=== PATIENT | female | born 1985 | race Caucasian/White ===

== ENCOUNTER 2019-07-13 12:47 | Outpatient (CLI) | payer OTHER ==
--- NOTE | 2019-07-13 16:11 | MMO ---
Bilateral MAMMO Bilat Diag [facility]. CLINICAL HISTORY: Patient is 33 years old and is seen for diagnostic exam,palpable abnormality in the left breast and skin thickening or retraction on clinical examination in the right breast. The patient has the following family history of breast cancer: cousin female; paternal aunt and maternal aunt. The patient has no personal history of cancer. VIEWS: The views performed were: bilateral craniocaudal with tomosynthesis; bilateral mediolateral with tomosynthesis; bilateral mediolateral oblique with tomosynthesis; left mediolateral oblique spot compression with tomosynthesis; and left craniocaudal spot compression with tomosynthesis. FILMS COMPARED: The present examination has been compared to a prior imaging study performed at [facility] on 07/13/2019. MAMMOGRAM FINDINGS: The breasts are heterogeneously dense, which could obscure a lesion on mammography. There are no suspicious masses, suspicious calcifications, or new areas of architectural distortion. IMPRESSION: THERE IS NO MAMMOGRAPHIC EVIDENCE OF MALIGNANCY. A ROUTINE FOLLOW-UP MAMMOGRAM AT AGE 41 IS RECOMMENDED. THE RESULTS OF THIS EXAM WERE SENT TO THE PATIENT. ACR BI-RADS Category 1 - Negative MAMMOGRAPHY NOTE: 1. A negative mammogram report should not delay a biopsy if a dominant of clinically suspicious mass is present. 2. Approximately 10% to 15% of breast cancers are not detected by mammography. 3. Adenosis and dense breasts may obscure an underlying neoplasm. Reported by: TORIN HANLEY MD Electonically Signed: [id number]
--- NOTE | 2019-07-13 17:35 | ULT ---
RIGHT BREAST ULTRASOUND: 07/13/19 HISTORY: Palpable finding in the periareolar region of the right breast on clinical exam by referring physicia n. No palpable finding at the time of the ultrasound. Real time imaging of the area of concern was performed after consultation with the doctor's office. T his shows normal appearing breast parenchyma. No masses. IMPRESSION: BIRADS 2: Benign Finding(s) Routine annual screening mammography (for women over age 40). POS: OFF
--- NOTE | 2019-07-13 17:36 | ULT ---
LEFT BREAST ULTRASOUND: 07/13/19 HISTORY: Patient has felt a persistent palpable abnormality at the 1 to 2 o'clock position of the left breast. COMPARISON: Mammogram study done today which showed no abnormality. Real time imaging of the area of concern shows no evidence of any cystic or solid lesion. IMPRESSION: BIRADS 2: Benign Finding(s) Routine annual screening mammography (for women over age 40). POS: OFF
== END 2019-07-13 12:48 | disposition home or self-care (01) ==
LOC: BICMAMMO 12:47
PROVIDERS: ATTEND Nurse Practitioner Women's Health
DX: N63.10 Unspecified lump in the right breast, unspecified quadrant (principal); N63.20 Unspecified lump in the left breast, unspecified quadrant
CPT/HCPCS: 77066; G0279

== ENCOUNTER 2019-11-29 11:56 | Emergency (ER) | payer BC ==
[2019-11-29 13:09] LABS: #Basophils 0.1 thou/uL (0.0-0.2); #Eosinphils 0.1 thou/uL (0.0-0.7); #Lymphocytes 2.3 thou/uL (1.20-3.40); #Monocytes 0.7 thou/uL (0.11-0.59); #Neutrophils 5.5 thou/uL (1.40-6.50); %Basophils 0.7 % (0.0-1.0); %Eosinophils 1.4 % (0.0-10.0); %Lymphocytes 26.8 % (21.0-51.0); %Monocytes 7.5 % (0.0-10.0); %Neutrophils 63.6 % (42.0-75.0); Hemoglobin 12.6 g/dL (12.0-16.0); Mean Corpuscular HGB CONC 31.9 g/dL (32.0-36.0); Mean Corpuscular Volume 84.7 fL (78.0-98.0); Mean Platelet Volume 6.5 fL (7.4-10.4); Platelet Count 376 thou/uL (130-400); RBC Distribution Width 13.5 % (11.5-14.5); Red Blood Cell (RBC) Count 4.65 mill/uL (4.20-5.40); White Blood Cell (WBC) Count 8.7 thou/uL (4.8-10.8)
--- NOTE | 2019-11-29 13:14 | RAD ---
EXAM: CHEST ONE VIEW HISTORY: Chest pain and fluctuating blood pressure. COMPARISON: None FINDINGS: The cardiac silhouette and pulmonary vasculature is within normal limits. The lungs are clear. The os seous structures are intact. IMPRESSION: No acute cardiopulmonary process.
[2019-11-29 13:27] LABS: ALT (SGPT) 10 U/L (8-55); AST (SGOT) 11 U/L (5-34); Albumin 4.5 g/dL (3.5-5.0); Alkaline Phosphatase 60 U/L (40-110); Anion Gap 11 mmol/L (10-20); BUN (Urea Nitrogen) 10 mg/dL (7.0-18.7); Bilirubin, Total 0.3 mg/dL (0.2-1.2); Calc. Creatinine Clearance 0 mL/min (70-130); Calcium 9.4 mg/dL (7.8-10.44); Carbon Dioxide 26 mmol/L (22-29); Chloride 105 mmol/L (98-107); Estimated GFR-MDRD 83; Globulin 3.3 g/dL (2.4-3.5); Glucose 98 mg/dL (70-105); Potassium 3.9 mmol/L (3.5-5.1); Protein, Total 7.8 g/dL (6.0-8.3); Sodium 138 mmol/L (136-145)
--- NOTE | 2019-11-29 13:57 | CT ---
CT Brain WO Con: 11/29/2019 1:37 PM CLINICAL HISTORY: Dizziness and slowness after working out this morning; hypotension. IMAGING TECHNIQUE: Multiple CT images were obtained of the brain without IV contrast. COMPARISON: None. FINDINGS: Brain: No acute infarct or hemorrhage is evident. No midline shift. Ventricles: Normal. No hydrocephalus. Skull: Intact. Visualized Paranasal sinuses: Clear. Mastoid air cells:Clear. Extracranial soft tissues:Normal. IMPRESSION: No acute intracranial abnormality.
[2019-11-29 14:27] LABS: BHCG - Serum Negative (NEGATIVE); Pregs Control Background? CLEAR/WHITE (CLR/WHITE); Pregs Control Bar Appear? YES (CONTROL BAR)
[2019-11-29 14:32] LABS: Bacteria/HPF 3+ HPF (None Seen); Bilirubin Negative (Negative); Blood, Urine Negative (Negative); Clarity Clear (Clear); Glucose, Urine (Dipstick) Normal (Negative); Leukocyte 250 Leu/uL (Negative); Nitrite Negative (Negative); Protein, Urine (Dipstick) Negative (Neg-Trace); RBC/HPF 0-3 HPF (0-3); Urobilinogen Normal mg/dL (Less than 2); WBC/HPF 0-3 HPF (0-3)
[2019-11-29] MEDS ORDERED: Lorazepam 1 MG TAB ONE (15:35)
[2019-11-29 15:40] LABS: Free T4 (Free Thyroxine) 1.35 ng/dL (0.70-1.48); Thyroid Stimulating Hormone 1.6522 uIU/mL (0.35-4.94)
[2019-11-29] MEDS ORDERED: Meclizine HCl 25 MG TAB ONE (17:30)
== END 2019-11-29 17:55 | disposition home or self-care (01) ==
LOC: ERS 11:56
DX: R00.2 Palpitations (principal); E78.00 Pure hypercholesterolemia, unspecified; F32.9 Major depressive disorder, single episode, unspecified
CPT/HCPCS: 36415; 70450; 71045; 80053; 81003; 81015; 84439; 84443; 84484; 84703; 85025; 85379; 87804; 93005; 96360; 96361; J8597

== ENCOUNTER 2019-11-30 18:17 | Observation (INO) | payer BC ==
[~2019-11-30 18:17] MED LIST: Iopamidol-370 76% 500 ML 1 ML ONE
[2019-11-30] MEDS ORDERED: Nitroglycerin 0.4 MG TAB 1 EACH ONE (18:38)
[2019-11-30] MEDS ORDERED: Aspirin Chewable 81 MG TAB ONE (18:51)
[2019-11-30 19:11] LABS: #Basophils 0.1 thou/uL (0.0-0.2); #Eosinphils 0.2 thou/uL (0.0-0.7); #Lymphocytes 3.1 thou/uL (1.20-3.40); #Monocytes 0.8 thou/uL (0.11-0.59); %Basophils 0.9 % (0.0-1.0); %Eosinophils 1.7 % (0.0-10.0); %Lymphocytes 30.6 % (21.0-51.0); %Monocytes 7.4 % (0.0-10.0); %Neutrophils 59.4 % (42.0-75.0); Hemoglobin 12.3 g/dL (12.0-16.0); Mean Corpuscular HGB CONC 31.7 g/dL (32.0-36.0); Mean Corpuscular Volume 85.2 fL (78.0-98.0); Mean Platelet Volume 6.3 fL (7.4-10.4); Platelet Count 357 thou/uL (130-400); RBC Distribution Width 13.3 % (11.5-14.5); Red Blood Cell (RBC) Count 4.56 mill/uL (4.20-5.40); White Blood Cell (WBC) Count 10.2 thou/uL (4.8-10.8)
--- NOTE | 2019-11-30 19:13 | RAD ---
Exam: Chest one view HISTORY:Chest pain Comparison: 11/29/2019 FINDINGS: Cardiac silhouette: Normal Aorta: Unremarkable Pulmonary vessels: Normal Costophrenic angles: Clear LUNGS: No masses or consolidation. Pneumothorax: None Osseous abnormalities: None IMPRESSION: No acute cardiopulmonary process.
[2019-11-30 19:34] LABS: ALT (SGPT) 9 U/L (8-55); AST (SGOT) 13 U/L (5-34); Albumin 4.5 g/dL (3.5-5.0); Alkaline Phosphatase 64 U/L (40-110); Anion Gap 15 mmol/L (10-20); BUN (Urea Nitrogen) 9 mg/dL (7.0-18.7); Bilirubin, Total 0.4 mg/dL (0.2-1.2); Calc. Creatinine Clearance 0 mL/min (70-130); Calcium 9.2 mg/dL (7.8-10.44); Carbon Dioxide 24 mmol/L (22-29); Chloride 105 mmol/L (98-107); Estimated GFR-MDRD 80; Glucose 92 mg/dL (70-105); Lipase 11 U/L (8-78); Potassium 3.9 mmol/L (3.5-5.1); Protein, Total 7.5 g/dL (6.0-8.3); Sodium 140 mmol/L (136-145)
--- NOTE | 2019-11-30 21:14 | CT ---
Exam: CT angiogram of the chest HISTORY: Chest pain. Syncope. COMPARISON: None TECHNIQUE: CT angiogram of the chest is performed in the axial plane. Three-dimensional reformatted i mages are submitted for interpretation FINDINGS: Mediastinum: No mass, lymphadenopathy or hematoma. HEART: Normal size. No significant pericardial fluid. Aorta: No aneurysm or dissection Upper solid abdominal viscera: No abnormality enhancement. Trachea and central bronchi: Patent Pleural spaces: No effusion Lung parenchyma: No masses or consolidation. Minimal scarring and atelectasis in the lung bases. Pneumothorax: None Osseous structures: No lytic or blastic lesions Pulmonary arteries: Adequate contrast opacification pulmonary arterial system to the level of segment al arteries. No filling defect to suggest pulmonary embolism Incidentals: Previous bariatric surgical change. IMPRESSION:No evidence of pulmonary artery embolism to the level of the segmental arteries.
--- NOTE | 2019-11-30 21:50 | ULT ---
EXAM: Bilateral lower extremity venous ultrasound HISTORY: Pain. Edema. COMPARISON: None TECHNIQUE: Multiplanar grayscale and color Doppler images were obtained in a bilateral lower extremit y venous ultrasound. Spectral analysis of the Doppler waveforms were performed. FINDINGS: The bilateral common femoral vein, profunda femoral veins, superficial femoral veins, and p opliteal veins are normal in appearance without visible thrombus. These vessels demonstrate normal compression, flow, and augmentation. The bilateral posterior tibial veins, profunda femoral veins and greater saphenous veins are patent w ithout evidence of DVT. IMPRESSION: No evidence of DVT in the left or right lower extremity.
[2019-11-30 23:25] LABS: Troponin I Less than 0.010 ng/mL (< 0.028)
[2019-11-30] MEDS ORDERED: Ketorolac Tromethamine 30 MG/ML VIAL ONE (23:40)
[2019-11-30] MEDS ORDERED: Acetaminophen 500 MG TAB ONE (23:40)
[2019-12-01 00:44] VITALS: BMI 44.6
[2019-12-01] MEDS ORDERED: Ondansetron PF 4 MG/2 ML Vial IVP PRN (03:19)
[2019-12-01 04:24] LABS: Troponin I Less than 0.010 ng/mL (< 0.028)
[2019-12-01 04:38] LABS: Free T4 (Free Thyroxine) 1.1 ng/dL (0.70-1.48); Thyroid Stimulating Hormone 3.579 uIU/mL (0.35-4.94)
--- NOTE | 2019-12-01 04:39 | HP ---
PRIMARY CARE PHYSICIAN: None. CHIEF COMPLAINT: Recurrent episodes of weakness, fatigue, and near syncope. Referral to ED from tool and die designer, Dr. Ring's office. HISTORY OF PRESENT ILLNESS: A 34-year-old obese female with past medical history of hypothyroidism, on levothyroxine, stroke with diplopia and prior episodes of weakness, fatigue, nausea, and near-syncope, most recently January 2019, who wore a 3-week Holter monitor at that time, which was unremarkable and was being followed by tool and die designer in [place], [place], who went to tool and die designer's office today for 5 to 6 episodes of recurrent complaints in the past week and was noted to have abnormal EKG changes while there with recurrence of symptoms and referred to ER. The patient reports that she has had prior similar symptoms in November 2017 and January 2019. She reports on Friday, approximately 2 hours after a gym workout, she experienced nausea, lightheadedness, extreme fatigue, and near syncopal event with her legs feeling weak and experienced a rubber band like sensation overlying the left upper arm with tingling in the left upper extremities associated with nausea and diaphoresis that lasted all the night. Denies any complaints of palpitations or syncope at that time. She does admit to drinking 1 to 2 cups of coffee earlier that day. She notes recurrence of symptoms on and felt okay on Friday. Friday, she felt fatigued all day and on Friday, she reports similar symptoms and falls until sleep on the couch, which was unusual for her as she takes care of young children. On Friday after a workout in the morning, she went to the [employer] and again experienced similar complaints lasting minutes in duration and sat down on a dressing room and symptoms only mildly improved and she presented to the emergency department for further evaluation. She was worked up with unremarkable workup and discharged home from the ER, but notes that she did not feel any better and that her symptoms had persisted all day Friday and even upon waking up on Friday morning, she continued to feel bad. She found an appointment with tool and die designer, Dr. Ring and underwent echocardiogram in his office. While speaking with him, she noted recurrence of left shoulder discomfort and a 12-lead EKG revealed T-wave inversions in the inferior leads and left anterior hemiblock, which improved as her pain resolved. She was wheeled to the ER personally by tool and die designer. Repeat 12-lead EKG and cardiac biomarker in ER have been unremarkable. The patient was admitted for further observation. At bedside, the patient complains of ongoing severe fatigue and some pressure-like discomfort in her chest, but feels much better than earlier today. She is concerned due to increased frequency of her symptoms. She reports a history of prior miscarriage and tubal ligation. She reports that her first daughter was born at term, but with intrauterine growth restriction and only weighed 2 pounds and 3 ounces, and her placenta was calcified with concerns for possible clots. She denies ever having any hypercoagulable workup. She denies any family history of premature CAD or sudden cardiac . She denies any illicit drug use and reports taking pre-workout protein shake. The patient reports noticing fluctuation in her blood pressure at home ranging from 90s to 140s. The patient also reports hemorrhoids that have been frequently bleeding. PAST MEDICAL HISTORY: Morbid obesity, hypothyroidism, stroke, recurrent episodes of near-syncope with last January 2019 Holter monitor unremarkable. PAST SURGICAL HISTORY: Hysterectomy, gastric sleeve, cholecystectomy, tubal ligation. SOCIAL HISTORY: The patient is , lives with her spouse and two daughters. She denies tobacco use or illicit drug use. ALLERGIES: DOCUMENTED TO LEVAQUIN AND MORPHINE. REVIEW OF SYSTEMS: Pertinent positives as per HPI. Remainder of review of systems negative. MEDICATIONS: Reviewed as per admission medication reconciliation including levothyroxine 125 mcg daily. FAMILY HISTORY: The patient denies any family history of premature CAD or sudden cardiac . Her father had hypertension. Mother had congestive heart failure. PHYSICAL EXAMINATION: VITAL SIGNS: Temperature 98.1, pulse 79, sinus rhythm, blood pressure 100/59, oxygen saturation 100% on room air, respirations 18. GENERAL APPEARANCE: This is a young obese female, who is awake, alert, oriented, coherent, lucid, not in any obvious distress, speaking in full complete sentences. HEENT: Normocephalic, atraumatic. No facial asymmetry. Pupils equally round. Extraocular muscles intact. Moist mucous membranes. NECK: Supple but nontender. CARDIOVASCULAR: S1, S2. Regular rate and rhythm. No harsh murmurs. No chest wall tenderness to palpation. LUNGS: Bilateral equal air entry on anterior auscultation. Symmetrical chest expansion. No wheezing or rales. ABDOMEN: Soft, nontender, nondistended. EXTREMITIES: No edema, cyanosis, or deformities of bilateral upper and lower extremities. SKIN: Warm to touch without rash or pallor or abrasion. LABORATORY DATA: CBC reviewed and unremarkable. CMP reviewed and unremarkable. Troponin negative x2. IMAGING: CTA chest and thorax on 11/30/2019, reveals no evidence of PE. 12-lead EKGs serially reviewed. Office EKG suggests T-wave inversions in leads II, III, and AVF with left anterior hemiblock. Echocardiogram from tool and die designer's office, unclear results. ASSESSMENT: 1. Recurrent complaints of near syncope of unspecified etiology. Evaluate for cardiogenic etiologies. The patient will be admitted to telemetry observation status. [facility] will be consulted to help assist in recurrent debilitating patient's symptoms. We will obtain cardiac biomarkers to exclude acute coronary syndrome. We will need to obtain tool and die designer echocardiogram results. We will maintain n.p.o. in the event further Cardiology workup is needed. Check thyroid function test noting history of hypothyroidism. The patient endorses multitude of medical problems, unclear if there is any unifying link. She has previously worn a Holter monitor in January 2019 by tool and die designer in [place], [place] and reports test was unremarkable, but she limited her activity at that time. 2. Jahaira hypothyroidism. Continue Synthroid 125 mcg p.o. daily. Check thyroid function test. 3. History of stroke in 2014 with resultant diplopia. 4. History of multiple miscarriages. 5. History of prior term delivery with daughter having intrauterine growth restriction and noted calcified placenta with possible clots. The patient denies ever having hypercoagulable workup done. 6. Morbid obesity, BMI 44. 7. Deep vein thrombosis prophylaxis, bilateral lower extremity sequential compression devices. 8. Disposition: Telemetry observation admission. We will await further Cardiology input. The patient was seen and examined on 12/01/2019. Job ID: [id number]
[2019-12-01] MEDS: Acetaminophen 500 MG TAB PO PRN (06:40)
[2019-12-01 07:54] LABS: Cardiac Risk 3.2 (Less than 4.5)
[2019-12-01] MEDS ORDERED: Diazepam 5 MG TAB PO SCH (09:00)
[2019-12-01] MEDS ORDERED: Communication Order-Pharmacy FS SCH (09:00)
[2019-12-01] MEDS: Sodium Chloride 0.9% 1,000 ML IV SCH ×2 (09:21→15:59)
[2019-12-01] MEDS ORDERED: Aspirin 81 mg Enteric Coated Tablet PO SCH (09:30)
--- NOTE | 2019-12-01 10:12 | CON ---
DATE OF CONSULTATION: 12/01/2019 REASON FOR CONSULTATION: Left arm pain, chest pressure, abnormal EKG. HISTORY OF PRESENT ILLNESS: Ms. Reyna is a pleasant 34-year-old woman. The patient has a history of recent left arm pain and chest pain. The pain was like a numb feeling going into her hand, but she also feels like a rubber band on her upper arm. Then, she also has pain associated with that. It goes through to her back between her shoulder blades and anteriorly and to the portion of her chest, that has made her difficult to breathe. She has had multiple episodes of that recently. She went to see Dr. Ring in his office yesterday. Echocardiogram showed normal left ventricular function, but she had recurrent pain in the office. There was one EKG during pain, in which she had T-wave inversions in the inferior leads. She got nitroglycerin, and then the EKG was back to normal. The patient does not use tobacco or smoke. No diabetes. She said she had a blood test done recently, which showed she was "high risk for heart attack". I do not know the results of that. It sounds like maybe her cholesterol was high at that time, but the more recent cholesterol done on this admission is not elevated. No history of diabetes. The patient states she has had 5 or 6 episodes of these sensations in the last week or 2. PAST MEDICAL HISTORY: 1. She has a history of morbid obesity. 2. She has a history of orthostatic hypotension. PAST SURGICAL HISTORY: 1. Previous gastric sleeve. 2. Cholecystectomy. 3. Tubal ligation. 4. Hysterectomy. SOCIAL HISTORY: No alcohol or tobacco. ALLERGIES: 1. LEVAQUIN. 2. MORPHINE. REVIEW OF SYSTEMS: Positive as outlined above. Otherwise, negative. MEDICATIONS: Medication prior to admission: Levothyroxine. FAMILY HISTORY: She said her father had a heart attack in his early 30s. Father had hypertension. PHYSICAL EXAMINATION: GENERAL: This is a pleasant young woman, in no distress. VITAL SIGNS: Blood pressure 99/55, pulse 60. HEENT: Eyes, sclerae are nonicteric. Mouth, mucous membranes are moist. NECK: Supple. No lymphadenopathy. LUNGS: Clear. CARDIAC: Normal S1. Normal S2. There is no murmur, rub, or gallop. ABDOMEN: Obese and nontender. EXTREMITIES: No clubbing or cyanosis. No edema. Pedal pulses are present, but difficult to feel femoral pulses palpable. LABORATORY DATA: Cardiac enzymes are all within normal range. The first was 0.15. The rest draw less than 0.010. Cholesterol level is 159. Blood sugar is 92. EKG: Most of the EKGs are within normal limits. There was one EKG with pain. There is a left anterior fascicular block, and also, it looks like ectopic atrial rhythm with T-wave inversions in the inferior leads. It is possible that there were lead placement issues during that EKG as the other EKGs do not have those findings. ASSESSMENT: 1. Recurrent left arm pain and chest pressure on multiple occasions of uncertain etiology. 2. Morbid obesity with previous gastric sleeve. 3. She tells me her father had a heart attack in his 30s. Otherwise, no real risk factors. At this time, it is unclear what the etiology of her symptoms is. The most definitive test would be heart catheterization, but I did explain to her there is some risk including injury to vascular structures including the femoral artery, increased risk of pseudoaneurysm formation in a patient with morbid obesity, risk of bleeding or infection, and the risk of stroke, heart attack, iodine allergy, loss of blood supply to leg or kidney, stent thrombosis and stent restenosis in the event of stent implantation. The patient understands and wishes to proceed. She wishes for the most definitive test. In view of the recurrent episodes on multiple occasions and unknown etiology, it seems reasonable to do a heart catheterization. As mentioned, I have extensively discussed risk with her. She wishes to know for sure if she has underlying coronary artery disease or not. ADDENDUM: Reviewing the EKGs again as I met her previously look like this was likely a lead placement issue with abnormal EKG. Reviewing again, it seems clearly that one EKG, which is abnormal looks definitely that leads were misplaced. The patient has had normal cardiac enzymes. No significant EKG changes with low risk factor profile for coronary artery disease. We will proceed with stress testing prior to any potential cardiac catheterization. That is also the patient's preference after discussing with her. Job ID: [id number]
--- NOTE | 2019-12-01 12:16 | MRI ---
MRI CERVICAL SPINE WITHOUT CONTRAST: Date: 12/01/2019 INDICATION: Neck pain. Left arm pain. FINDINGS: Cervical vertebra maintain normal height and alignment. Disc spaces are normally maintained. Cervical vertebra maintain normal signal. No evidence of significant disc bulge or disc protrusion in any of the cervical levels. There is no e vidence of central canal or foraminal stenosis. The cervical cord signal is normal. IMPRESSION: Unremarkable MRI cervical spine. POS: SABINO
[2019-12-01] MEDS ORDERED: Sodium Chloride 0.9% 500 ML IV SCH (16:15)
[2019-12-02] MEDS: Acetaminophen 500 MG TAB PO PRN (08:45)
--- NOTE | 2019-12-02 09:33 | NM ---
Radionucleotide stress and rest myocardial perfusion scan with CT attenuation correction and SPECT im aging Left ventricular wall motion evaluation and ejection fraction HISTORY: Chest pain. FINDINGS: Carmelo protocol. Total test time 7:01. There is heterogeneous uptake of radiotracer throughout the left ventricular myocardium. On the stres s images that are presented, there is apparent decrease in radiotracer activity at the anterolateral wall. Images and data were manipulated and reviewed at the workstation. Polar maps were also evaluated for quantitative analysis. No significant reversibility is reliably demonstrated. QGS analysis of gated SPECT images shows no focal wall motion abnormalities. TID equal 0.87. LHR 47%. IMPRESSION: Probably normal myocardial perfusion scan. No reliable evidence of ischemia. Normal LVEF.
[2019-12-02 11:34] VITALS: BP 107/61; TEMP 98.4
--- NOTE | 2019-12-02 14:25 | PRG ---
DATE OF SERVICE: 12/02/2019 SUBJECTIVE: Ms. Reyna is doing better. She is not having any chest pressure other than, she really thinks about it, she says some mild uncomfortable feeling in her upper chest, and when she walks around, that feels better. OBJECTIVE: VITAL SIGNS: Her blood pressure is 108/59 and pulse 74. LUNGS: Clear. CARDIAC: Normal S1, normal S2. ABDOMEN: Soft and nontender. EXTREMITIES: She has no edema. PERTINENT LABORATORY DATA: The troponin I's were all in the normal range, the first was 0.015, normal being less than 0.028, the others were less than 0.010. The EKGs were all normal. There was one EKG in the chart where it looks like there was a lead reversal, but all the EKGs are normal. There was just one looks like there is some lead reversal. Her LDL cholesterol is 98. Her blood sugar is 92. HDL cholesterol is 50. On the stress test, she was into stage III of the Carmelo protocol. She had no chest pain. No EKG changes. The nuclear medicine images were interpreted as probably normal, suspect there is likely some breast attenuation artifact. The patient did have a chest CT and also evaluation of the thoracic aorta, which is normal. There is no evidence of pulmonary emboli. ASSESSMENT: 1. Chest pain, atypical for angina. 2. Very low risk factor profile for coronary artery disease. Her cholesterol is normal. She does not have high blood sugars. She does not smoke. She does not have diabetes. Her father may have had a "heart attack," in his 30s, although it sounds like the details from what she is telling me are somewhat vague, and he is still doing well in his late 50s as she thinks he had stroke, so it is not really known whether he had atherosclerotic disease. I discussed the options with the patient. Cardiac catheterization could be considered, but based on the guidelines, it would be hard to justify doing an invasive test with such a low risk factor profile and no definitive ischemia on EKG, enzymes or stress testing. Another option would be outpatient CT coronary angiogram which she strongly prefers that option. In addition, she also has orthostatic hypotension symptoms. Discussed the mechanism of that. Discussed the importance of sitting or lying down quickly she feels lightheaded and started wearing some support stockings and tried to increase her salt intake. She says if she takes too much salt, she has problem with swelling, so I have tried to find a "happy medium" on that. I also will get a 7-day monitor placed to occasional palpitations. We will give her Protonix 40 mg a day for 30 days in view of the chest discomfort, which potentially could be esophageal reflux. She said she had a lot of reflux just after her gastric sleeve; therefore, that could be reflux symptoms. Job ID: [id number]
--- NOTE | 2019-12-02 15:53 | DIS ---
DATE OF ADMISSION: 11/30/2019 DATE OF DISCHARGE: 12/02/2019 FINAL DISCHARGE DIAGNOSES: Chest pain and also recurrent episodes of weakness, fatigue, and near-syncope. HOSPITAL COURSE: Apparently, she went to her the [facility] since she had some 3-week Holter monitor in 2018, and during this visit, she complained about 5 to 6 episodes of recurrent above-mentioned symptoms in the past. Also, it was noted that she had abnormal EKG changes, so she was referred to the emergency room. Apparently, she had prior similar symptoms in November 2017 and January 2019 and recently approximately 2 hours after a gym workout, she experienced nausea, lightheadedness, extreme fatigue, and near syncopal event with some leg weakness and rubber band-like sensation overlying the left upper arm with tingling in the left upper extremity associated with nausea and diaphoresis that lasted all the night. She denied any complaints of palpitation or syncope at that time. She noticed recurrent symptoms on , so this was on and off problem. Apparently, on Friday after workout in the morning, she went to the [employer] and again experienced similar complaints lasting minutes in duration and so she sat down in the dressing room and the symptoms only mildly improved, so she presented to the emergency room for further evaluation. Apparently, she was worked up with unremarkable workup and discharged home from the ER, so the next day she went to Dr. Ring's office and she had additional testing done. Then, she experienced recurrent left shoulder discomfort and 12-lead EKG revealed T-wave inversions in the inferior leads and left anterior hemiblock, which improved as her pain resolved. So, she was transferred to the emergency room personally by [facility] [employer] and the repeated 12-lead EKG and cardiac biomarkers in the emergency room have been unremarkable, so she got admitted to the hospital for further evaluation. She had a lower extremity venous Doppler done, which was negative. Also, she had an MRI of the cervical spine done, which was negative too. She was seen by bobbin fixer, Dr. Quinn, who recommended to do stress test on her heart, which was done and it showed normal LVEF, but apparently there was some decrease in radiotracer activity at the anterolateral wall and it was read as probably normal myocardial perfusion scan by radiologist. So, Dr. Quinn decided to put her on the recorder 7 days and send her home and do followup with him in his office for CT angiogram of coronary arteries. Also, her cardiac enzymes came back negative, so she is doing well. She does not have much complaints to offer. Her blood pressure is 108/59, pulse is 75, respirations 18, O2 saturation is 97% on room air, and temperature is 98.6. She is seen and examined before she is discharged. Recommendation is to stay on regular diet. Activities, as tolerated. Follow up with Dr. Quinn in 1 week for [address] artery [address] angiogram. DISCHARGE MEDICATIONS: At the time of discharge, Protonix 40 mg once a day and she will have prescription for that and continue her previous home medications, which is multivitamin once a day, levothyroxine 175 mcg once a day, sertraline 100 mg once a day, and estradiol 2 mg once a day. Job ID: [id number]
== END 2019-12-02 14:17 | disposition home or self-care (01) ==
LOC: ERS 18:17 → 2SW 23:59
PROVIDERS: ADMIT Hospitalist; ATTEND Hospitalist
DX: R53.1 Weakness (principal); R55 Syncope and collapse; R53.83 Other fatigue; R07.89 Other chest pain; E06.3 Autoimmune thyroiditis; E03.9 Hypothyroidism, unspecified; I69.398 Other sequelae of cerebral infarction; H53.2 Diplopia; M79.602 Pain in left arm; E78.00 Pure hypercholesterolemia, unspecified; E66.01 Morbid (severe) obesity due to excess calories; Z68.42 Body mass index [BMI] 45.0-49.9, adult; Z79.899 Other long term (current) drug therapy; Z88.2 Allergy status to sulfonamides; Z88.5 Allergy status to narcotic agent; Z98.84 Bariatric surgery status
CPT/HCPCS: 36415; 71045; 71275; 72141; 78452; 80053; 80061; 83690; 84439; 84443; 84484; 85025; 93005; 93017; 93970; 96374; A9500; G0378; J1885; Q9967

== ENCOUNTER 2019-12-09 12:54 | Outpatient (CLI) | payer BC ==
[2019-12-09] MEDS ORDERED: Iopamidol-370 76% 500 ML 1 ML ONE (14:41)
--- NOTE | 2019-12-10 15:27 | CT ---
CTA HEART WITH AND WITHOUT CONTRAST: (CT CORONARY ANGIOGRAM) DATE: 12/09/2019 HISTORY: 34-year-old female with chest pain and abnormal stress test. History of syncope. TECHNIQUE: Axial scans of chest, with displayed small field of view around the heart. Precontrast scan for coronary calcium score. Multiple postcontrast scans after IV injection of 88 mL Isovue 370. Source images, 3D MIP reconstructions, and 3D volume-rendering reconstructions. FINDINGS: There is no coronary atherosclerotic calcification. No cardiomegaly or pericardial effusion. The visu alized, central lung deras are grossly clear. Thoracic aorta is normal. Suture line along the wall of narrowed stomach. The RCA is diffusely very small in caliber. PDA is supplied by the LCX. No moderate or severe stenosis identified involving the left main, left anterior descending, major br anches of LAD, and left circumflex, arteries. No ASD or VSD. No chamber dilation. No thrombus in left atrial appendage. IMPRESSION: 1. Coronary calcium score is 0. 2. Diminutive right coronary artery. 3. The other major coronary arteries are normal. 4. Status post bariatric surgery. 5. Left dominant coronary system. POS: TPC
== END 2019-12-09 12:55 | disposition home or self-care (01) ==
LOC: BICCT 12:54
PROVIDERS: ATTEND Internal Medicine Cardiovascular Disease
DX: R07.9 Chest pain, unspecified (principal); R94.39 Abnormal result of other cardiovascular function study; Z98.84 Bariatric surgery status
CPT/HCPCS: 75574; Q9967

== ENCOUNTER 2020-05-16 12:07 | Outpatient (CLI) | payer BC ==
--- NOTE | 2020-05-16 13:22 | ULT ---
Exam: Thyroid ultrasound HISTORY: Jahaira's disease FINDINGS: Diffuse activity throughout the thyroid gland Thyroid isthmus measures 1 cm Right thyroid lobe measures 4.5 x 1.6 x 1.7 cm Left thyroid lobe measures 4.7 x 1.9 x 1.3 cm Thyroid nodules: 1.1 x 1.0 x 1.1 cm solid nodule in the lower pole left thyroid lobe. Nodule slightly hyperechoic with respect to the adjacent parenchyma. IMPRESSION: Solitary solid nodule in the inferior pole the left thyroid lobe. TI-RADS level TR 4 moderately suspi cious. Follow-up ultrasound in one year.
== END 2020-05-16 12:08 | disposition home or self-care (01) ==
LOC: BICULT 12:07
PROVIDERS: ATTEND Internal Medicine Endocrinology, Diabetes & Metabolism
DX: E04.0 Nontoxic diffuse goiter (principal); E04.1 Nontoxic single thyroid nodule
CPT/HCPCS: 76536

== ENCOUNTER 2020-05-29 10:23 | Outpatient (CLI) | payer BC, OTHER ==
[2020-05-30 12:23] LABS: SARS-CoV-2 MS2 Positive; SARS-CoV-2 N Gene Negative; SARS-CoV-2 S Gene Negative; SARS-CoV-2 orf1ab Negative
== END 2020-05-29 10:24 | disposition home or self-care (01) ==
LOC: LABSCS 10:23
PROVIDERS: ATTEND Specialist
DX: Z01.812 Encounter for preprocedural laboratory examination (principal); Z11.59 Encounter for screening for other viral diseases
CPT/HCPCS: 87635; U0003

== ENCOUNTER 2020-06-01 12:23 | Day surgery (SDC) | payer BC ==
[2020-05-31 12:16] VITALS: BMI 43.2
[2020-06-01] MEDS ORDERED: Lidocaine 1% PF 5 ML VIAL ONE (12:31)
[2020-06-01] MEDS ORDERED: Sodium Bicarbonate 2.5 MEQ/5 ML VIAL ONE (12:31)
--- NOTE | 2020-06-01 13:40 | ULT ---
Ultrasound-guided fine-needle aspiration biopsy thyroid: 06/01/2020 HISTORY: 34-year-old female with solitary thyroid nodule. TECHNIQUE: Signed informed consent obtained. Anterior neck was draped in usual sterile fashion. 25-gauge needle used to apply buffered lidocaine superficially and deeply under ultrasound guidance. Under ultrasound guidance, a series of 4 separate 25-gauge needles mounted on 4 separate 5 mL syringes were used to aspirate the round nodule at the lower pole of the left lobe of the thyroid gland. Each pass was given to laboratory tech from pathology. Patient tolerated procedure well. No complications. IMPRESSION: Technically successful fine-needle aspiration biopsy of left lower pole thyroid nodule with 4 passes.
[2020-06-01 14:04] VITALS: BP 139/90; TEMP 98.8
== END 2020-06-01 13:30 | disposition home or self-care (01) ==
LOC: ULT 12:23
PROVIDERS: ATTEND Specialist
PROC: 0G9G3ZX Drainage of Left Thyroid Gland Lobe, Percutaneous Approach, Diagnostic (ICD-10-PCS; principal; 2020-06-01)
PROC: BG44ZZZ Ultrasonography of Thyroid Gland (ICD-10-PCS; principal; 2020-06-01)
DX: E05.10 Thyrotoxicosis with toxic single thyroid nodule without thyrotoxic crisis or storm (principal); E06.3 Autoimmune thyroiditis; D68.0 Von Willebrand disease; F32.9 Major depressive disorder, single episode, unspecified; Z86.73 Personal history of transient ischemic attack (TIA), and cerebral infarction without residual deficits; Z79.899 Other long term (current) drug therapy; Z88.1 Allergy status to other antibiotic agents; Z88.5 Allergy status to narcotic agent
CPT/HCPCS: 60100; 76942; 88173

== ENCOUNTER 2020-06-12 07:56 | Outpatient (CLI) | payer BC, OTHER ==
[2020-06-13 14:15] LABS: SARS-CoV-2 MS2 Positive; SARS-CoV-2 N Gene Negative; SARS-CoV-2 S Gene Negative; SARS-CoV-2 by NAA Not Detected (NotDetected); SARS-CoV-2 orf1ab Negative
== END 2020-06-12 07:57 | disposition home or self-care (01) ==
LOC: LABBT 07:56
PROVIDERS: ATTEND Specialist
DX: Z01.812 Encounter for preprocedural laboratory examination (principal); Z11.59 Encounter for screening for other viral diseases; E04.1 Nontoxic single thyroid nodule; E05.90 Thyrotoxicosis, unspecified without thyrotoxic crisis or storm; R13.10 Dysphagia, unspecified
CPT/HCPCS: 85014; 87635; U0003